=== PATIENT | female | born 1945 | race Two or more races ===

== ENCOUNTER 2022-07-29 17:41 | Inpatient (IN) | payer OTHER, BC ==
[~2022-07-29] VITALS: Ht 175.3 cm; Wt 109.8 kg
[2022-07-29] MEDS ORDERED: ATACAND32 MG (18:41)
[2022-07-29] MEDS ORDERED: CHILDREN'S ASPI81 MG (18:41)
[2022-07-29] MEDS ORDERED: ZOLOFT50 MG (18:41)
[2022-07-29] MEDS ORDERED: METFORMIN HCL500 M3 (18:41)
[2022-07-29] MEDS ORDERED: JANUVIA50 MG (18:41)
[2022-07-29] MEDS ORDERED: XANAX1 MG (18:42)
[2022-07-29] MEDS ORDERED: WELLBUTRIN SR150 MG (18:42)
[2022-07-29] MEDS ORDERED: TRAZODONE HCL150 MG (18:42)
--- NOTE | 2022-07-29 18:42 | NUR ---
PATIENT IS RECIEVED ALERT AND ORIENTED X3 FROM AMBULANCE UNIT. PATIENT SAYS THAT WHILE AT THE AIRPORT HER LEGS FELT NUMB, AND SHE GOT CHILLS AND FELT DIZZY. PATIENT IS PLACD IN BED WITH RAILINGS UP AND CONNECTED TO TELEMETRY AND OXIMETRY. IV LINE IS STARTED ON PATIENT'S ARM AND BLOOD SAMPLES ARE TAKEN ACCORDINGLY. PATIENT STAYS IN OBSERVATION FOR ANY CHANGES TO HER CONDITION.
[2022-08-05] MEDS ORDERED: CEFDINIR300 MG PO (10:35)
[2022-08-05] MEDS ORDERED: CANDESARTAN CILE8 MG PO (10:35)
[2022-08-05] MEDS ORDERED: SPIRONOLACTONE50 MG PO (10:35)
[2022-08-05] MEDS ORDERED: LIPITOR40 MG PO (10:35)
[2022-08-05] MEDS ORDERED: METFORMIN HCL500 MG PO (10:35)
== END 2022-08-05 12:15 | disposition home or self-care (01) | DRG 853 ==
LOC: ER 17:41 → SEC-K 22:03 → O/R 22:03 → ICU 22:03 → O/R 23:33 → ICU 07-30 03:44 → MEDI 07-30 19:37 → ICU 07-30 20:12 → SURG 07-31 19:39
PROVIDERS: Urology; ADMIT Internal Medicine; ATTEND Internal Medicine
PROC: 0T738DZ Dilation of Right Kidney Pelvis with Intraluminal Device, Via Natural or Artificial Opening Endoscopic (ICD-10-PCS; principal; 2022-07-30)
PROC: 0T748DZ Dilation of Left Kidney Pelvis with Intraluminal Device, Via Natural or Artificial Opening Endoscopic (ICD-10-PCS; 2022-07-30)
PROC: 0TC48ZZ Extirpation of Matter from Left Kidney Pelvis, Via Natural or Artificial Opening Endoscopic (ICD-10-PCS; 2022-07-30)
PROC: 0TC38ZZ Extirpation of Matter from Right Kidney Pelvis, Via Natural or Artificial Opening Endoscopic (ICD-10-PCS; 2022-07-30)
PROC: 4A12X4Z Monitoring of Cardiac Electrical Activity, External Approach (ICD-10-PCS; 2022-08-04)
DX: A41.51 Sepsis due to Escherichia coli [E. coli] (principal); R65.21 Severe sepsis with septic shock; N13.6 Pyonephrosis; N17.9 Acute kidney failure, unspecified; D64.9 Anemia, unspecified; E11.65 Type 2 diabetes mellitus with hyperglycemia; B96.20 Unspecified Escherichia coli [E. coli] as the cause of diseases classified elsewhere; E11.69 Type 2 diabetes mellitus with other specified complication; E66.9 Obesity, unspecified; E78.5 Hyperlipidemia, unspecified; Z79.84 Long term (current) use of oral hypoglycemic drugs; Z68.35 Body mass index [BMI] 35.0-35.9, adult